=== PATIENT | female | born 1965 | race Caucasian/White ===

== ENCOUNTER 2017-05-22 21:35 | Emergency (ER) | payer OTHER ==
[~2017-05-22] VITALS: Ht 170.2 cm; Wt 77.1 kg
--- NOTE | 2017-05-22 21:55 | NUR ---
TO BED 7 A 51 YO FEMALE BIBSELF AND REPORTED, "TOOK 2 SUPPLEMETS... BLOOD BUILDER AND DYNAMIC SLIM AND FELT LIKE I WAS GOING TO PASS OUT." PATIENT IS AAOX4, AMBULATORY WITH STEADY GAIT, VSS, NAD NOTED, BREATHING EVEN AND UNLABORED. NONDIAPHORETIC. PATIENT NOTED WITH MILD ANXIETY. COMFORT MEASURES RENDERED. FRIEND AT BEDSIDE.
--- NOTE | 2017-05-22 22:15 | NUR ---
MEDICATED PATIENT ORDERED.
[2017-05-22] MEDS ORDERED: ONDANSETRON 4 MG TAB.RAPDIS ONE (22:20)
[2017-05-22] MEDS ORDERED: ONDANSETRON 4 MG TAB.RAPDIS SL ONE (22:30)
[2017-05-22 22:59] LABS: APPEARANCE,URINE CLEAR (CLEAR); BILIRUBIN,URINE NEGATIVE (NEGATIVE); BLOOD, URINE TRACE-INTA Ery/uL (NEGATIVE); KETONES,URINE 2+ (NEGATIVE); LEUKOCYTE ESTERASE ,URINE NEGATIVE (NEGATIVE); NITRITE, URINE NEGATIVE (NEGATIVE); PROTEIN,URINE NEGATIVE (NEGATIVE); UGLUCOSE NEGATIVE (NEGATIVE); UROBILINOGEN,URINE 0.2 EU/dL (0.2)
[2017-05-22 23:00] LABS: COLOR,URINE STRAW (YELLOW)
[2017-05-22 23:12] LABS: BACTERIA,URINE Rare /HPF (None Seen); RBC,URINE 0-2 /HPF (0-2); SQUAMOUS EPITHELIAL CELL,UR Few /HPF (None Seen); WBC,URINE 0-2 /HPF (0-3)
[2017-05-22 23:38] VITALS: BP 129/75
--- NOTE | 2017-05-22 23:38 | NUR ---
Patient discharged to home in stable condition. Written and verbal after care instructions given. Patient verbalizes understanding of instruction. Patient is ambulatory with steady gait, accompanied by friend. No further complaints.
== END 2017-05-22 23:39 | disposition home or self-care (01) ==
LOC: ER 21:38
DX: T50.995A Adverse effect of other drugs, medicaments and biological substances, initial encounter (principal); R19.7 Diarrhea, unspecified; R42 Dizziness and giddiness; Z88.2 Allergy status to sulfonamides; Y92.89 Other specified places as the place of occurrence of the external cause
CPT/HCPCS: 81001; 99283; A4606; Q0162; Z7610; 81000-TC